=== PATIENT | female | born 1985 | race Caucasian/White ===

== ENCOUNTER → 2019-04-15 | Outpatient (REF) | payer SELFPAY | LOC: M LAB REF 16:57 | PROVIDERS: ATTEND Advanced Practice Midwife | DX: O09.43 Supervision of pregnancy with grand multiparity, third trimester (principal) ==

== ENCOUNTER 2019-05-11 01:03 | Inpatient (IN) | payer SELFPAY ==
[2019-05-11] VITALS (29 sets, daily range): BP systolic 109–180; BP diastolic 66–97
[~2019-05-11] VITALS: Ht 162.6 cm; Wt 72.2 kg
[2019-05-11 02:33] LABS: HEMATOCRIT 33.7 % (36.0-47.0); HEMOGLOBIN 11.2 g/dl (12.0-15.5); MEAN CORPUSCULAR HEMOGLOBIN 28.6 pg (27.0-33.0); MEAN CORPUSCULAR HGB CONC 33.2 g/dl (32.0-36.5); PLATELET COUNT, AUTOMATED 155 10^3/uL (150-450); RED BLOOD COUNT 3.92 10^6/uL (4.00-5.40); WHITE BLOOD COUNT 8.7 10^3/uL (4.0-10.0)
[2019-05-11 03:45] LABS: HIV 1&2 SCREEN CENTAUR NEGATIVE (NEGATIVE)
[2019-05-11] MEDS ORDERED: LR 1,000 ML IV SCH (09:30)
[2019-05-11] MEDS ORDERED: OXYTOCIN DRIP 30 UNITS in APPROPRIATE DILUENT 1 EA IV SCH ×3 (09:30→15:15)
[2019-05-11] MEDS ORDERED: DOCUSATE SODIUM 100 MG CAP PO PRN (12:30)
[2019-05-11] MEDS ORDERED: DIBUCAINE 1% OINTMENT 30GM TOP PRN (12:30)
[2019-05-11] MEDS ORDERED: IBUPROFEN 600 MG TAB PO PRN (12:30)
[2019-05-11] MEDS ORDERED: IBUPROFEN 800 MG TAB PO PRN (12:30)
[2019-05-11] MEDS ORDERED: RHOGAM 300 MCG (1500 IU) INJ (J2790) IM SCH (12:30)
[2019-05-11] MEDS ORDERED: MEASLES,MUMPS,RUBELLA VACCINE INJ (MMR-II) (90707) SC SCH (12:30)
[2019-05-11] MEDS ORDERED: ACETAMINOPHEN TAB 650MG DOSE (2X325MG) PO PRN (12:30)
[2019-05-11] MEDS ORDERED: ACETAMINOPHEN 500 MG TAB PO PRN (12:30)
[2019-05-11] MEDS ORDERED: ANUSOL HC CREAM 30GM TOP PRN (12:30)
[2019-05-11] MEDS ORDERED: miSOPROStol 200 MCG TAB (S0191) PR ONE (12:30)
[2019-05-11] MEDS ORDERED: MOM 30ML SUSPENSION UDC PO PRN (12:30)
[2019-05-11] MEDS ORDERED: METHYLERGONOVINE MALEATE 0.2 MG TAB PO PRN (12:30)
[2019-05-11] MEDS ORDERED: SLF 3 ML SYR IV PRN (14:15)
--- NOTE | 2019-05-11 14:19 | HPE ---
DATE OF ADMISSION: 05/11/2019 REASON FOR ADMISSION: Labor. HISTORY OF PRESENT ILLNESS: Mrs. Price is a 34-year-old, 10, para 8, who presents at 39 weeks 6 days estimated gestational age by last menstrual period with complaints of contractions. She reports contractions throughout the night approximately every 20 minutes. She denies any vaginal bleeding or leakage of fluid. Her course has been remarkable for minimum care. She had one appointment at 36 weeks. PAST MEDICAL HISTORY: None. PAST SURGICAL HISTORY: None. OBSTETRICAL HISTORY: She is 10 para 8. She has had eight uncomplicated home births. MEDICATIONS: None. NO KNOWN DRUG ALLERGIES. SOCIAL HISTORY: This patient is of [facility] descent. She lives at home with seven children and her . PHYSICAL EXAM: Her vital signs are stable. She is afebrile. She has a category 1 rate tracing. General appearance is well-appearing, no acute distress. Her lungs are clear to auscultation bilaterally. Cardiovascular: Heart regular rate and rhythm. Abdomen is gravid, nontender. Her cervical exam she is 4 cm dilated, 50% effaced, -3 station. ASSESSMENT: 1. Mrs. Price is a 34-year-old, 10, para 8, at 39 weeks 6 days estimated gestational age, in labor. 2. Reassuring status. PLAN: 1. Admit to labor and delivery. 2. Complete blood count (CBC), rapid plasma reagin (RPR), type and screen, hepatitis, HIV to be drawn. 3. Anticipate spontaneous vaginal delivery.
[2019-05-11] MEDS: OXYTOCIN DRIP 30 UNITS in APPROPRIATE DILUENT 1 EA IV SCH ×2 (14:52→15:03)
[2019-05-11] MEDS ORDERED: PERCOCET 5MG/325MG TAB PO ONE (15:00)
[2019-05-11] MEDS: SLF 3 ML SYR IV SCH (21:56)
[2019-05-12 05:39] VITALS: BP 107/75
[2019-05-12] MEDS: SLF 3 ML SYR IV SCH (06:20)
--- NOTE | 2019-05-12 06:37 | DN ---
DATE OF DELIVERY: 05/11/2019 TIME OF SANDRA: 1146 GENDER: Female. APGARS: 9 and 9. WEIGHT: 3080 grams or 6 pounds and 13 ounces. LACERATIONS: None. ANESTHESIA: None. ESTIMATED BLOOD LOSS: 300 mL. COUNTS: Five laparotomy sponges accounted for prior to and after delivery. DELIVERY NOTE: On 05/11/2019, at 1146, Mrs. Price a 34-year-old, 10, now para 9, had a spontaneous vaginal delivery of a live born female , Apgars 9 and 9, weight was 6 pounds and 13 ounces or 3080 grams. The head was delivered with a face presentation mantle up, this was followed by delivery shoulders and corpus. Infant was handed to mom with a good cry. Cord was clamped times two and was cut by the father of the baby under my direction. Cord blood was obtained. Placenta was drained and delivered grossly intact. A premixed bag of 500 mL of normal saline with 30 units of Pitocin was bolused along with uterine massage as well as 1000 mg of misoprostol rectally for uterine hemostasis. On inspection, cervix, vagina and perineum was grossly intact and hemostatic. Mom and baby in recovery in stable condition.
[2019-05-12 07:18] LABS: HEMATOCRIT 33.2 % (36.0-47.0); MEAN CORPUSCULAR HGB CONC 33.1 g/dl (32.0-36.5); MEAN CORPUSCULAR VOLUME 87.6 fl (80.0-96.0); PLATELET COUNT, AUTOMATED 143 10^3/uL (150-450); RED BLOOD COUNT 3.79 10^6/uL (4.00-5.40); WHITE BLOOD COUNT 8.7 10^3/uL (4.0-10.0)
[2019-05-12] MEDS ORDERED: PRENATAL VITAMINS CHEWABLE TABLET PO SCH (09:00)
[2019-05-12] MEDS ORDERED: ADACEL/BOOSTRIX VACCINE (DIPHTH/PERTUSS/ACELL/TETANUS)0.5ML SYR (90715) IM ONE (09:00)
== END 2019-05-12 14:10 | disposition home or self-care (01) | DRG 560 ==
LOC: M LDO 01:03 → M LDI 02:06 → M OBS 16:57
PROVIDERS: ADMIT Obstetrics & Gynecology; ATTEND Obstetrics & Gynecology
PROC: 10E0XZZ Delivery of Products of Conception, External Approach (ICD-10-PCS; principal; 2019-05-11)
DX: O80 Encounter for full-term uncomplicated delivery (principal); Z3A.39 39 weeks gestation of pregnancy; Z37.0 Single live birth

== ENCOUNTER 2021-05-01 18:32 | Inpatient (IN) | payer SELFPAY ==
[~2021-05-01] VITALS: Ht 162.6 cm; Wt 75.2 kg
[2021-05-01] VITALS (8 sets, daily range): BP systolic 124–174; BP diastolic 84–93
[2021-05-01] MEDS ORDERED: PRENTAB9 PO (18:52)
[2021-05-01] MEDS ORDERED: LACTATED RINGER'S 1000 ML IV STA (19:38)
[2021-05-01] MEDS ORDERED: OXYTOCIN DRIP 30 UNITS in IV 1 EA IV PRN ×2 (19:40→21:30)
[2021-05-01] MEDS ORDERED: LR 1,000 ML IV SCH (19:40)
[2021-05-01] MEDS ORDERED: METHYLERGONOVINE MALEATE 0.2 MG/ML VIAL (J2210) IM PRN (19:40)
[2021-05-01 19:41] LABS: HEMATOCRIT 35.4 % (36.0-47.0); HEMOGLOBIN 11.8 g/dl (12.0-15.5); MEAN CORPUSCULAR HEMOGLOBIN 28.2 pg (27.0-33.0); MEAN CORPUSCULAR HGB CONC 33.3 g/dl (32.0-36.5); MEAN CORPUSCULAR VOLUME 84.7 fl (80.0-96.0); PLATELET COUNT, AUTOMATED 167 10^3/uL (150-450); RED BLOOD COUNT 4.18 10^6/uL (4.00-5.40); WHITE BLOOD COUNT 8.7 10^3/uL (4.0-10.0)
[2021-05-01] MEDS ORDERED: OXYTOCIN 30 UNITS IN 0.9% NaCl 500ML IV BAG (J2590) As Ordered ONE (20:45)
[2021-05-01 20:53] LABS: HIV 1&2 SCREEN CENTAUR NEGATIVE (NEGATIVE)
--- NOTE | 2021-05-01 21:18 | HPEPDOC ---
Obstetrical History & Physical General Date of Admission May 01, 2021 at 19:13 History of Present Illness Dolores is a 36yo [place] at 39w3d by lmp presenting today for regular ctx. She had 8 home births previously and then in 2019 delivered at [facility] because she had "more bleeding than normal" with her 8th delivery "requiring a shot to stop the bleeding". She feels her ctx as only mildly uncomfortable. Good movement. No LOF. No vaginal bleeding. Chief Complaint: Contractions, term Information Provided By: Patient Care Care: Limited Care (only 1 office visit 1 week ago ) Dating Final EDC: May 05, 2021 Final EDC by: LMP Antepartum Course Diagnos(e)s grand multip, AMA, hx of hemorrhage Past Medical History Past Obstetrical History : Past Obstetrical History: Multigravida (History of 8 home births (the last complicated by PPH- no blood transfusion) and 1 hospital . 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 Past Medical History Medical History Benign Surgical History: Denies/None Family History Significant Family History: No pertinent family hx Social History Marital Status: Family situation: Spouse/partner home Psychosocial History: No pertinent psych hx * Smoker: non-smoker Alcohol: Denies Drugs: denies Imunizations Tdap status: declined Influenza Status: declined Allergies Coded Allergies: No Known Allergies (Unverified , 05/11/19) Medications Scheduled No.137/Iron/Folic Acd ( Vitamin Tablet) 1 Each Tablet, 1 TAB PO DAILY Physical Examination Physical Examination GENERAL: Alert and oriented times three. ABDOMEN: Gravid and non-tender to touch. FETUS: Is vertex (VTX) by sterile vaginal examination (SVE) and TAUS EXTREMITIES: No edema of BLE. prominent varicosities of BLE TAUS: SIUP with cephalic presentation, anterior placenta, JOSE 3.7cm (oligo), +FCA, +FM, FL c/w 38w6d Vital Signs/I&O Vital Signs Date Time Temp Pulse Resp B/P (MAP) Pulse Ox O2 Delivery O2 Flow Rate FiO2 05/01/21 19:12 100.0 78 16 124/85 (98) Laboratory Data 24H LABS Laboratory Tests 2 05/01/21 19:24: Nucleated Red Blood Cells % (auto) 0.0 CBC/BMP Laboratory Tests 05/01/21 19:24 Pertinent Laboratoy Data Blood Type: A- (from prior admission. No labs performed in this . ) Steroid Therapy Steroid Therapy: No Vaginal Examination Dilation: 5 cm Effacement: 80% Station: -1 Cervical Consistency: Soft Cervical Position: Anterior Presentation: Cephalic presentation Assessment Heart Rate (FHR): 130 Variability: Moderate Accelerations: Positive Decelerations: None Tocometer Contractions: Yes Frequency: irregular Duration: greater than 60 seconds Strength: palpated as strong Assessment/Plan Assessment Dolores is a 36yo [place] at 39w3d by lmp in active labor with SCE 5/80/-1. Cephalic on SCE. TAUS shows cephalic, oligo JOSE 3.7cm, anterior placenta, FL c/w 38w6d. Vitals wnl, benign exam. AROM, no fluid at 1949 upon admission. PMhx/PNC significant for: grand multip, AMA, hx of hemorrhage. 1 OB visit a week ago. Plan Admit and orient. 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 Diet: clear liquids. Group B Streptococcus (GBS) unknown, but full term so no ppx indicated Labs and intravenous (IV) per unit protocol Anticipate normal spontaneous delivery () Safe to proceed MD Kenton Ravi Katrina D MD May 01, 2021 21:18
[2021-05-01] MEDS ORDERED: IBUPROFEN 600MG TAB PO PRN (21:20)
[2021-05-01] MEDS ORDERED: RHOGAM 300 MCG (1500 IU) INJ (J2790) IM SCH (21:20)
[2021-05-01] MEDS ORDERED: MEASLES,MUMPS,RUBELLA VACCINE INJ (MMR-II) (90707) SC SCH (21:20)
[2021-05-01] MEDS ORDERED: DOCUSATE SODIUM 100MG CAPSULE PO PRN (21:20)
[2021-05-01] MEDS ORDERED: ACETAMINOPHEN TAB 650MG DOSE (2X325MG) PO PRN (21:20)
[2021-05-01] MEDS ORDERED: IBUPROFEN 800 MG TAB PO PRN (21:20)
[2021-05-01] MEDS ORDERED: ACETAMINOPHEN 500 MG TAB PO PRN (21:20)
--- NOTE | 2021-05-01 21:28 | DNPDOC ---
[facility] Delivery Note Delivery Note DATE OF DELIVERY: 05/01/21 PREDELIVERY DIAGNOSIS: 39w3d gestation and labor. POST DELIVERY DIAGNOSIS: Delivered. PROCEDURE: Spontaneous vaginal delivery PAPER FEEDER: Dr. Sharmila Fung MD ANESTHESIA: none ESTIMATED BLOOD LOSS: 250 mL. FINDINGS: 7 pound 2 ounce (3220g) female infant, Score 9/9 DELIVERY SUMMARY: Dolores is a 36yo [id number] s/p uncomplicated at 39w3d after presenting in active labor, delivering at 2053 on 05/01/21. She was 5cm on presentation and after AROM (no fluid achieved, consistent with oligo noted on TAUS on admission) very precipitously felt desire to push. With just a few ctx and excellent maternal effort, head delivered OA, restituted ML. Right anterior shoulder delivered followed by posterior shoulder and corpus. vigorous with spontaneous cry, placed on maternal abdomen, apgars 9/9. After approx 1 min, cord clamped x2 and cut by FOB. Cord blood obtained for MBT A neg. With fundal massage and traction on cord, placenta delivered spontaneously with centrally inserted 3 vessel umbilical cord. Pitocin bolused via IV and more uterine massage performed, fundus noted firm at u-2cm. Patient also given 0.2mg IM methergine as prophylaxis since she has hx of prior PPH. Inspection of perineum and vagina revealed no lacerations. Total hemostasis noted. All counts correct x2. Mom and infant were doing well when I left the room. MD Kenton Ravi Katrina D MD May 01, 2021 21:28
[2021-05-02 06:00] VITALS: BP 139/66
--- NOTE | 2021-05-02 07:44 | IPNPDOC ---
Progress Note Date of Service: May 02, 2021 Day#: 1 Progress Note PPD1 SUBJECT: Dolores is a 36yo doing well on PPD 1 s/p uncomplicated at term after presenting in labor. She has been ambulating, voiding spontaneously without issue and tolerating regular diet. Breast feeding without issue. Reports lochia is like a normal period. No f/c/n/v/CP/SOB. OBJECTIVE: VITAL SIGNS: Within normal limits, afebrile. Alert and oriented times three. Abdomen: Fundus firm at U-2. Soft, NTTP. Extremities: no pain with palpation of calves ASSESSMENT: Dolores is a 36yo doing well on PPD 1 s/p uncomplicated at term after presenting in labor. Vitals within normal limits, afebrile, hemodynamically stable with no evidence of infection. PLAN: 1. Discharge to home today. 2. Tylenol and Motrin for pain if needed 3. Encourage breast feeding and ambulation. 4. Discussed return precautions Sharmila Fung MD VS, I&O, 24H, [facility] Vital Signs/I&O Vital Signs Date Time Temp Pulse Resp B/P (MAP) Pulse Ox O2 Delivery O2 Flow Rate FiO2 05/02/21 06:00 97.9 76 18 139/66 (90) 99 Room Air I&O- Last 24 Hours up to 6 AM 05/02/21 06:00 Intake Total 500 ml Output Total 850 ml Balance -350 ml Laboratory Data 24H LABS Laboratory Tests 2 05/01/21 19:24: Nucleated Red Blood Cells % (auto) 0.0, Syphilis Serology NONREACTIVE, Hepatitis B Surface Antigen NEGATIVEL, HIV Antigen/Antibody Combo Qual NEGATIVE 05/01/21 21:18: Serology Scanned Report Hepatitis B Testing CBC/BMP Laboratory Tests 05/01/21 19:24 Sharmila Fung MD May 02, 2021 07:44
--- NOTE | 2021-05-02 07:52 | DS.PDOC ---
Discharge Summary General Date of Admission May 01, 2021 at 19:13 Date of Discharge May 02, 2021 Discharge Summary PROCEDURES PERFORMED DURING STAY: spontaneous vaginal delivery ADMITTING DIAGNOSES: 1. SIUP at term, active labor 2. History of prior hemorrhage DISCHARGE DIAGNOSES: 1. SIUP at term, active labor 2. History of prior hemorrhage COMPLICATIONS/CHIEF COMPLAINT: LABOR. HISTORY OF PRESENT ILLNESS/HOSPITAL COURSE: Dolores is a 36yo doing well on PPD 1 s/p uncomplicated at term after presenting in labor. She had a benign course and at time of discharge, vitals within normal limits, afebrile, hemodynamically stable with no evidence of infection. DISCHARGE MEDICATIONS: Please see below. ALLERGIES: Please see below. PHYSICAL EXAMINATION ON DISCHARGE: VITAL SIGNS: Within normal limits, afebrile. Alert and oriented times three. Abdomen: Fundus firm at U-2. Soft, NTTP. Extremities: no pain with palpation of calves LABORATORY DATA: Please see below. DIET: regular DISCHARGE PLAN/INSTRUCTIONS: 1. Discharge to home today. 2. Tylenol and Motrin for pain if needed 3. Encourage breast feeding and ambulation. 4. Discussed return precautions DISCHARGE CONDITION: Stable TIME SPENT ON DISCHARGE: 20 minutes. Vital Signs/I&Os Vital Signs Date Time Temp Pulse Resp B/P (MAP) Pulse Ox O2 Delivery O2 Flow Rate FiO2 05/02/21 06:00 97.9 76 18 139/66 (90) 99 Room Air I&O- Last 24 Hours up to 6 AM 05/02/21 06:00 Intake Total 500 ml Output Total 850 ml Balance -350 ml Laboratory Data Labs 24H Laboratory Tests 2 05/01/21 19:24: Nucleated Red Blood Cells % (auto) 0.0, Syphilis Serology NONREACTIVE, Hepatitis B Surface Antigen NEGATIVEL, HIV Antigen/Antibody Combo Qual NEGATIVE 05/01/21 21:18: Serology Scanned Report Hepatitis B Testing CBC/BMP Laboratory Tests 05/01/21 19:24 Discharge Medications Scheduled No.137/Iron/Folic Acd ( Vitamin Tablet) 1 Each Tablet, 1 TAB PO DAILY, (Reported) Allergies Coded Allergies: No Known Allergies (Unverified , 05/11/19) Sharmila Fung MD May 02, 2021 07:52
[2021-05-02] MEDS ORDERED: PRENATAL VITAMINS CHEWABLE TABLET PO SCH (09:00)
== END 2021-05-02 12:50 | disposition home or self-care (01) | DRG 560 ==
LOC: M LDO 18:32 → M LDI 19:13 → M OBS 22:50
PROVIDERS: ADMIT Obstetrics & Gynecology; ATTEND Obstetrics & Gynecology
PROC: 10E0XZZ Delivery of Products of Conception, External Approach (ICD-10-PCS; principal; 2021-05-01)
PROC: 10907ZC Drainage of Amniotic Fluid, Therapeutic from Products of Conception, Via Natural or Artificial Opening (ICD-10-PCS; 2021-05-01)
DX: O41.03X0 Oligohydramnios, third trimester, not applicable or unspecified (principal); Z3A.39 39 weeks gestation of pregnancy; Z37.0 Single live birth; Z87.59 Personal history of other complications of pregnancy, childbirth and the puerperium